=== PATIENT | male | born 1995 | race Caucasian/White ===

== ENCOUNTER 2017-06-23 11:49 | Inpatient (IN) | payer MEDICAID ==
[~2017-06-23] VITALS: Ht 165.1 cm; Wt 60.6 kg
[2017-06-23] MEDS ORDERED: SODIUM CHLORIDE 0.9% 1,000ML IVBOLUS ONE (12:30)
[2017-06-23] MEDS ORDERED: SODIUM CHLORIDE FLUSH 10ML SYR IVF ONE (12:30)
[2017-06-23] MEDS ORDERED: ACETAMINOPHEN 500 MG TABLET PO ONE (12:30)
[2017-06-23] MEDS ORDERED: ACETAMINOPHEN 500 MG TABLET ONE ×2 (12:31→14:18)
[2017-06-23] MEDS ORDERED: IBUPROFEN 200 MG TABLET ONE (12:32)
[2017-06-23] MEDS ORDERED: ACETAMINOPHEN 325 MG TABLET PO ONE (13:00)
[2017-06-23] MEDS ORDERED: IBUPROFEN 200 MG TABLET PO ONE (13:00)
[2017-06-23 13:04] LABS: BASOPHILS # (AUTO) 0.02 x10^3/uL (0-0.1); BASOPHILS % (AUTO) 0 % (0-1); EOSINOPHILS # (AUTO) 0.09 x10^3/uL (0-0.4); EOSINOPHILS % (AUTO) 1 % (1-7); LYMPHOCYTES # (AUTO) 1.63 x10^3/uL (1-3.4); LYMPHOCYTES % (AUTO) 16 % (22-44); MD NO; MEAN CORPUSCULAR HEMOGLOBIN 28.6 pg (27.5-34.5); MEAN CORPUSCULAR HGB CONC 32.6 g/dL (33.2-36.2); MEAN CORPUSCULAR VOLUME 87.8 fL (81-97); MEAN PLATELET VOLUME 12.1 fL (7.4-10.4); MONOCYTES % (AUTO) 5 % (2-9); NEUTROPHILS % (AUTO) 78 % (42-75); PLATELET COUNT 109 x10^3/uL (130-400); RED BLOOD COUNT 4.87 x10^6/uL (4.38-5.82); RED CELL DISTRIBUTION WIDTH 15.5 % (9.4-14.8)
[2017-06-23 13:30] LABS: RAPID INFLUENZA A Negative (Negative); RAPID INFLUENZA B Negative (Negative)
[2017-06-23 13:40] LABS: ALBUMIN 3.2 g/dL (3.4-5.0); ANION GAP 7 mmol/L (5-15); CALCIUM 8.1 mg/dL (8.5-10.1); CHLORIDE 142 mmol/L (98-107); CREATININE 1.53 mg/dL (0.7-1.3)
[2017-06-23] MEDS ORDERED: CEFTRIAXONE PMX 1GM/50ML 50 ML IV ONE (14:00)
[2017-06-23] MEDS ORDERED: POTASSIUM CHLORIDE 40 MEQ in SODIUM CHLORIDE 0.45% 1,000 ML IV SCH (14:00)
[2017-06-23] MEDS ORDERED: CEFTRIAXONE PMX 1GM/50ML 50 ML ONE (14:17)
[2017-06-23 14:28] LABS: ANION GAP 7 mmol/L (5-15); CALCIUM 7.5 mg/dL (8.5-10.1); CHLORIDE 143 mmol/L (98-107); CREATININE 1.31 mg/dL (0.7-1.3)
[2017-06-23] MEDS: NS + 20MEQ KCL 1,000 ML IV SCH (15:58)
[2017-06-23] MEDS ORDERED: ACETAMINOPHEN 325 MG TABLET PO PRN (16:00)
[2017-06-23] MEDS ORDERED: ONDANSETRON 2MG/ML, 2ML IVPush PRN (16:00)
[2017-06-23] MEDS ORDERED: POLYETHYLENE GLYCOL 17 GM PACKET PO PRN (16:00)
[2017-06-23] MEDS ORDERED: HEPARIN 5,000 UNITS/ML, 1ML ONE (17:19)
[2017-06-23] MEDS ORDERED: NS + 20MEQ KCL 1,000 ML IV ONE (17:26)
[2017-06-23] MEDS: AZITHROMYCIN 500 MG in SODIUM CHLORIDE 0.9% 250 ML IV SCH (17:50)
[2017-06-23] MEDS: HEPARIN 5,000 UNITS/ML, 1ML SQ SCH ×2 (17:58→23:31)
[2017-06-23 18:09] LABS: ANION GAP 6 mmol/L (5-15); CALCIUM 7.3 mg/dL (8.5-10.1); CHLORIDE 142 mmol/L (98-107); CREATININE 1.15 mg/dL (0.7-1.3)
[2017-06-23] MEDS: CEFTRIAXONE PMX 1GM/50ML 50 ML IV SCH (19:38)
[2017-06-23 20:45] LABS: CHLORIDE,URINE RANDOM 212 mmol/L; MICROSCOPIC NOT IND; POTASSIUM,URINE RANDOM 48 mmol/L; SODIUM,URINE RANDOM 200 mmol/L
[2017-06-23 20:49] LABS: CULTURE INDICATED? NO
[2017-06-23] MEDS ORDERED: POTASSIUM CHLORIDE 20 MEQ TAB.ER.PRT PO ONE (21:00)
[2017-06-23 21:04] VITALS: BP 98/50
[2017-06-23 22:38] LABS: ANION GAP 9 mmol/L (5-15); CALCIUM 7.2 mg/dL (8.5-10.1); CHLORIDE 142 mmol/L (98-107)
[2017-06-23] MEDS ORDERED: POTASSIUM CHLORIDE 20 MEQ in DEXTROSE 5% 1,000 ML IV SCH (23:00)
[2017-06-24 02:17] LABS: ALANINE AMINOTRANSFERASE 10 U/L (12-78); ALBUMIN 2.5 g/dL (3.4-5.0); ANION GAP 8 mmol/L (5-15); CALCIUM 7.3 mg/dL (8.5-10.1); CHLORIDE 140 mmol/L (98-107); CREATININE 1.07 mg/dL (0.7-1.3)
[2017-06-24 02:20] LABS: ALKALINE PHOSPHATASE 53 U/L (45-117); BILIRUBIN,TOTAL 0.7 mg/dL (0.2-1.0); TOTAL PROTEIN 6.3 g/dL (6.4-8.2)
[2017-06-24 02:23] LABS: MEAN CORPUSCULAR HEMOGLOBIN 28.2 pg (27.5-34.5); MEAN CORPUSCULAR HGB CONC 32.4 g/dL (33.2-36.2); MEAN CORPUSCULAR VOLUME 87.1 fL (81-97); RED BLOOD COUNT 4.12 x10^6/uL (4.38-5.82); RED CELL DISTRIBUTION WIDTH 14.9 % (9.4-14.8)
[2017-06-24] MEDS: POTASSIUM CHLORIDE 20 MEQ in DEXTROSE 5% 1,000 ML IV SCH ×3 (02:30→23:45)
[2017-06-24 02:39] LABS: BASOPHILS # (AUTO) 0.07 x10^3/uL (0-0.1); BASOPHILS % (AUTO) 1 % (0-1); EOSINOPHILS # (AUTO) 0.14 x10^3/uL (0-0.4); EOSINOPHILS % (AUTO) 2 % (1-7); LYMPHOCYTES # (AUTO) 2.03 x10^3/uL (1-3.4); LYMPHOCYTES % (AUTO) 24 % (22-44); MD SCAN; MEAN PLATELET VOLUME 12.1 fL (7.4-10.4); MONOCYTES # (AUTO) 0.46 x10^3/uL (0.2-0.8); MONOCYTES % (AUTO) 5 % (2-9); NEUTROPHILS # (AUTO) 5.79 x10^3/uL (1.8-6.8); NEUTROPHILS % (AUTO) 68 % (42-75); PLATELET COUNT 84 x10^3/uL (130-400)
[2017-06-24] MEDS ORDERED: POTASSIUM CHLORIDE 20 MEQ TAB.ER.PRT PO ONE (03:00)
[2017-06-24] MEDS: NS + 20MEQ KCL 1,000 ML IV SCH (05:18)
[2017-06-24 07:00] LABS: ANION GAP 6 mmol/L (5-15); CALCIUM 7.4 mg/dL (8.5-10.1); CHLORIDE 139 mmol/L (98-107); CREATININE 0.94 mg/dL (0.7-1.3)
[2017-06-24 10:26] LABS: ANION GAP 6 mmol/L (5-15); CALCIUM 7.4 mg/dL (8.5-10.1); CHLORIDE 136 mmol/L (98-107); CREATININE 0.87 mg/dL (0.7-1.3)
[2017-06-24] MEDS: HEPARIN 5,000 UNITS/ML, 1ML SQ SCH ×3 (10:37→23:45)
[2017-06-24] MEDS: SENNA/DOCUSATE TABLET PO SCH (10:37)
[2017-06-24 14:24] LABS: ANION GAP 6 mmol/L (5-15); CALCIUM 7.5 mg/dL (8.5-10.1); CHLORIDE 133 mmol/L (98-107)
[2017-06-24 14:26] LABS: CREATININE 1.03 mg/dL (0.7-1.3)
[2017-06-24] MEDS: AZITHROMYCIN 500 MG in SODIUM CHLORIDE 0.9% 250 ML IV SCH (17:09)
[2017-06-24 18:14] LABS: ANION GAP 7 mmol/L (5-15); CALCIUM 7.5 mg/dL (8.5-10.1); CHLORIDE 131 mmol/L (98-107); CREATININE 1.03 mg/dL (0.7-1.3)
[2017-06-24] MEDS: CEFTRIAXONE PMX 1GM/50ML 50 ML IV SCH (20:06)
[2017-06-24 22:23] LABS: ANION GAP 10 mmol/L (5-15); CALCIUM 7.1 mg/dL (8.5-10.1); CHLORIDE 129 mmol/L (98-107); CREATININE 0.95 mg/dL (0.7-1.3)
[2017-06-25 02:34] LABS: MEAN CORPUSCULAR HEMOGLOBIN 28.6 pg (27.5-34.5); MEAN CORPUSCULAR HGB CONC 33.2 g/dL (33.2-36.2); MEAN CORPUSCULAR VOLUME 86.1 fL (81-97); MEAN PLATELET VOLUME 11.7 fL (7.4-10.4); PLATELET COUNT 83 x10^3/uL (130-400); RED BLOOD COUNT 3.92 x10^6/uL (4.38-5.82); RED CELL DISTRIBUTION WIDTH 14.6 % (9.4-14.8)
[2017-06-25 02:37] LABS: ALANINE AMINOTRANSFERASE 10 U/L (12-78); ALBUMIN 2.4 g/dL (3.4-5.0); CALCIUM 7.2 mg/dL (8.5-10.1); CREATININE 0.94 mg/dL (0.7-1.3)
[2017-06-25 03:03] LABS: BASOPHILS # (AUTO) 0.01 x10^3/uL (0-0.1); BASOPHILS % (AUTO) 0 % (0-1); EOSINOPHILS # (AUTO) 0.15 x10^3/uL (0-0.4); EOSINOPHILS % (AUTO) 3 % (1-7); LYMPHOCYTES # (AUTO) 1.87 x10^3/uL (1-3.4); LYMPHOCYTES % (AUTO) 32 % (22-44); MD SCAN; MONOCYTES # (AUTO) 0.38 x10^3/uL (0.2-0.8); MONOCYTES % (AUTO) 6 % (2-9); NEUTROPHILS # (AUTO) 3.51 x10^3/uL (1.8-6.8); NEUTROPHILS % (AUTO) 59 % (42-75)
[2017-06-25 03:13] LABS: ALKALINE PHOSPHATASE 57 U/L (45-117); ANION GAP 9 mmol/L (5-15); BILIRUBIN,TOTAL 0.3 mg/dL (0.2-1.0); CHLORIDE 128 mmol/L (98-107); TOTAL PROTEIN 6.1 g/dL (6.4-8.2)
[2017-06-25 04:30] VITALS: BP 100/59
[2017-06-25 05:56] LABS: MEAN CORPUSCULAR HEMOGLOBIN 29.3 pg (27.5-34.5); MEAN CORPUSCULAR HGB CONC 34.1 g/dL (33.2-36.2); MEAN CORPUSCULAR VOLUME 85.9 fL (81-97); MEAN PLATELET VOLUME 11.3 fL (7.4-10.4); PLATELET COUNT 79 x10^3/uL (130-400); RED CELL DISTRIBUTION WIDTH 14.3 % (9.4-14.8)
[2017-06-25 06:05] LABS: CHLORIDE 125 mmol/L (98-107)
[2017-06-25 06:06] LABS: ANION GAP 9 mmol/L (5-15); CALCIUM 7.1 mg/dL (8.5-10.1); CREATININE 0.95 mg/dL (0.7-1.3)
[2017-06-25 06:27] LABS: BASOPHILS # (AUTO) 0.02 x10^3/uL (0-0.1); BASOPHILS % (AUTO) 0 % (0-1); EOSINOPHILS # (AUTO) 0.14 x10^3/uL (0-0.4); EOSINOPHILS % (AUTO) 3 % (1-7); LYMPHOCYTES % (AUTO) 30 % (22-44); MD SCAN; MONOCYTES # (AUTO) 0.32 x10^3/uL (0.2-0.8); MONOCYTES % (AUTO) 6 % (2-9); NEUTROPHILS # (AUTO) 3.18 x10^3/uL (1.8-6.8); NEUTROPHILS % (AUTO) 60 % (42-75)
[2017-06-25] MEDS ORDERED: POTASSIUM CHLORIDE 20 MEQ TAB.ER.PRT PO ONE (08:00)
[2017-06-25] MEDS: SENNA/DOCUSATE TABLET PO SCH (09:33)
[2017-06-25] MEDS ORDERED: POTASSIUM CHLORIDE 20 MEQ in DEXTROSE 5% 1,000 ML IV SCH ×2 (10:00→23:00)
[2017-06-25 10:06] VITALS: BP 98/63
[2017-06-25 12:14] LABS: ANION GAP 5 mmol/L (5-15); CALCIUM 7.3 mg/dL (8.5-10.1); CHLORIDE 121 mmol/L (98-107); CREATININE 0.85 mg/dL (0.7-1.3)
[2017-06-25 12:35] VITALS: BP 106/68
[2017-06-25 12:49] LABS: HIT RESULT POSITIVE (NEGATIVE)
[2017-06-25] MEDS: AZITHROMYCIN 500 MG in SODIUM CHLORIDE 0.9% 250 ML IV SCH (16:45)
[2017-06-25 18:58] VITALS: BP 98/64
[2017-06-25] MEDS: CEFTRIAXONE PMX 1GM/50ML 50 ML IV SCH (19:35)
[2017-06-25 20:17] LABS: ANION GAP 7 mmol/L (5-15); CALCIUM 7.5 mg/dL (8.5-10.1); CHLORIDE 118 mmol/L (98-107); CREATININE 0.84 mg/dL (0.7-1.3)
[2017-06-26 02:10] VITALS: BP 93/58
[2017-06-26 05:12] LABS: MEAN CORPUSCULAR HEMOGLOBIN 28.7 pg (27.5-34.5); MEAN CORPUSCULAR HGB CONC 33.2 g/dL (33.2-36.2); MEAN CORPUSCULAR VOLUME 86.5 fL (81-97); MEAN PLATELET VOLUME 11.8 fL (7.4-10.4); PLATELET COUNT 93 x10^3/uL (130-400); RED CELL DISTRIBUTION WIDTH 13.7 % (9.4-14.8)
[2017-06-26 05:18] LABS: ALANINE AMINOTRANSFERASE 16 U/L (12-78); ALBUMIN 2.4 g/dL (3.4-5.0); ANION GAP 7 mmol/L (5-15); CALCIUM 7.6 mg/dL (8.5-10.1); CHLORIDE 117 mmol/L (98-107); CREATININE 0.82 mg/dL (0.7-1.3)
[2017-06-26 05:21] LABS: ALKALINE PHOSPHATASE 53 U/L (45-117); BILIRUBIN,TOTAL 0.5 mg/dL (0.2-1.0)
[2017-06-26 05:53] LABS: BASOPHILS # (AUTO) 0.02 x10^3/uL (0-0.1); BASOPHILS % (AUTO) 0 % (0-1); EOSINOPHILS # (AUTO) 0.12 x10^3/uL (0-0.4); EOSINOPHILS % (AUTO) 3 % (1-7); LYMPHOCYTES % (AUTO) 35 % (22-44); MD SCAN; MONOCYTES # (AUTO) 0.31 x10^3/uL (0.2-0.8); MONOCYTES % (AUTO) 7 % (2-9); NEUTROPHILS % (AUTO) 55 % (42-75)
[2017-06-26 07:22] VITALS: BP 104/62
[2017-06-26] MEDS: SENNA/DOCUSATE TABLET PO SCH (09:00)
[2017-06-26] MEDS ORDERED: POTASSIUM CHLORIDE 20 MEQ in DEXTROSE 5% 1,000 ML IV SCH (10:00)
[2017-06-26 14:00] VITALS: BP 100/65
[2017-06-26] MEDS: AZITHROMYCIN 500 MG in SODIUM CHLORIDE 0.9% 250 ML IV SCH (15:55)
[2017-06-26 18:34] VITALS: BP 99/63
[2017-06-26] MEDS: CEFTRIAXONE PMX 1GM/50ML 50 ML IV SCH (20:18)
[2017-06-27] MEDS: POTASSIUM CHLORIDE 20 MEQ in DEXTROSE 5% 1,000 ML IV SCH ×2 (01:06→21:04)
[2017-06-27 02:38] VITALS: BP 104/68
[2017-06-27 05:23] LABS: ALBUMIN 2.5 g/dL (3.4-5.0); CHLORIDE 111 mmol/L (98-107)
[2017-06-27 05:26] LABS: ANION GAP 6 mmol/L (5-15); CALCIUM 7.9 mg/dL (8.5-10.1); CREATININE 0.92 mg/dL (0.7-1.3)
[2017-06-27 07:07] VITALS: BP 102/62
[2017-06-27] MEDS: SENNA/DOCUSATE TABLET PO SCH (08:46)
[2017-06-27 14:00] VITALS: BP 101/55
[2017-06-27] MEDS: AZITHROMYCIN 500 MG in SODIUM CHLORIDE 0.9% 250 ML IV SCH (17:45)
[2017-06-27 18:28] VITALS: BP 96/63
[2017-06-27] MEDS: CEFTRIAXONE PMX 1GM/50ML 50 ML IV SCH (20:07)
[2017-06-28 02:05] VITALS: BP 101/64
[2017-06-28 05:33] LABS: ANION GAP 7 mmol/L (5-15); CALCIUM 8.5 mg/dL (8.5-10.1); CHLORIDE 114 mmol/L (98-107); CREATININE 0.95 mg/dL (0.7-1.3)
[2017-06-28 05:44] LABS: BASOPHILS # (AUTO) 0.02 x10^3/uL (0-0.1); BASOPHILS % (AUTO) 0 % (0-1); EOSINOPHILS # (AUTO) 0.14 x10^3/uL (0-0.4); EOSINOPHILS % (AUTO) 3 % (1-7); LYMPHOCYTES # (AUTO) 1.29 x10^3/uL (1-3.4); LYMPHOCYTES % (AUTO) 25 % (22-44); MD NO; MEAN CORPUSCULAR HEMOGLOBIN 29.1 pg (27.5-34.5); MEAN CORPUSCULAR VOLUME 85.6 fL (81-97); MEAN PLATELET VOLUME 11.3 fL (7.4-10.4); MONOCYTES # (AUTO) 0.42 x10^3/uL (0.2-0.8); MONOCYTES % (AUTO) 8 % (2-9); NEUTROPHILS # (AUTO) 3.23 x10^3/uL (1.8-6.8); NEUTROPHILS % (AUTO) 63 % (42-75); PLATELET COUNT 123 x10^3/uL (130-400); RED BLOOD COUNT 4.53 x10^6/uL (4.38-5.82); RED CELL DISTRIBUTION WIDTH 13.9 % (9.4-14.8)
[2017-06-28 07:24] VITALS: BP 100/58
[2017-06-28] MEDS: SENNA/DOCUSATE TABLET PO SCH (08:22)
[2017-06-28] MEDS: DEXTROSE 5% 1,000 ML IV SCH ×3 (08:22→22:48)
[2017-06-28 13:20] VITALS: BP 112/69
[2017-06-28] MEDS: AZITHROMYCIN 500 MG in SODIUM CHLORIDE 0.9% 250 ML IV SCH (16:10)
[2017-06-28 19:22] VITALS: BP 116/73
[2017-06-28] MEDS: CEFTRIAXONE PMX 1GM/50ML 50 ML IV SCH (20:32)
[2017-06-29 02:26] VITALS: BP 101/62
[2017-06-29] MEDS: DEXTROSE 5% 1,000 ML IV SCH ×3 (05:31→20:15)
[2017-06-29 06:02] LABS: BASOPHILS # (AUTO) 0.03 x10^3/uL (0-0.1); BASOPHILS % (AUTO) 1 % (0-1); EOSINOPHILS # (AUTO) 0.15 x10^3/uL (0-0.4); EOSINOPHILS % (AUTO) 3 % (1-7); LYMPHOCYTES % (AUTO) 31 % (22-44); MD NO; MEAN CORPUSCULAR HEMOGLOBIN 28.9 pg (27.5-34.5); MEAN CORPUSCULAR HGB CONC 33.7 g/dL (33.2-36.2); MEAN CORPUSCULAR VOLUME 85.9 fL (81-97); MONOCYTES # (AUTO) 0.47 x10^3/uL (0.2-0.8); MONOCYTES % (AUTO) 9 % (2-9); NEUTROPHILS # (AUTO) 2.92 x10^3/uL (1.8-6.8); NEUTROPHILS % (AUTO) 57 % (42-75); PLATELET COUNT 133 x10^3/uL (130-400); RED BLOOD COUNT 4.55 x10^6/uL (4.38-5.82); RED CELL DISTRIBUTION WIDTH 13.5 % (9.4-14.8)
[2017-06-29 06:10] LABS: CHLORIDE 111 mmol/L (98-107)
[2017-06-29 06:12] LABS: ANION GAP 8 mmol/L (5-15); CALCIUM 8.4 mg/dL (8.5-10.1); CREATININE 0.93 mg/dL (0.7-1.3)
[2017-06-29 08:30] VITALS: BP 101/58
[2017-06-29] MEDS: SENNA/DOCUSATE TABLET PO SCH (09:00)
[2017-06-29 14:30] VITALS: BP 108/58
[2017-06-29] MEDS: AZITHROMYCIN 500 MG in SODIUM CHLORIDE 0.9% 250 ML IV SCH (17:15)
[2017-06-29] MEDS: CEFTRIAXONE PMX 1GM/50ML 50 ML IV SCH (20:15)
[2017-06-29 20:22] VITALS: BP 122/66
[2017-06-30] MEDS: DEXTROSE 5% 1,000 ML IV SCH (03:50)
[2017-06-30 04:00] VITALS: BP 120/60
[2017-06-30 05:27] LABS: ANION GAP 7 mmol/L (5-15); CALCIUM 8.7 mg/dL (8.5-10.1); CHLORIDE 109 mmol/L (98-107); CREATININE 0.84 mg/dL (0.7-1.3)
[2017-06-30 07:37] VITALS: BP 105/61
[2017-06-30] MEDS: SENNA/DOCUSATE TABLET PO SCH (09:00)
[2017-06-30 12:00] VITALS: BP 110/75
[2017-06-30] MEDS: CEFTRIAXONE PMX 1GM/50ML 50 ML IV SCH ×2 (17:04→22:36)
[2017-06-30] MEDS: AZITHROMYCIN 500 MG in SODIUM CHLORIDE 0.9% 250 ML IV SCH (17:10)
[2017-06-30 20:11] VITALS: BP 105/56
[2017-07-01 04:42] VITALS: BP 108/60
[2017-07-01 04:55] LABS: BASOPHILS # (AUTO) 0.02 x10^3/uL (0-0.1); BASOPHILS % (AUTO) 0 % (0-1); EOSINOPHILS # (AUTO) 0.16 x10^3/uL (0-0.4); EOSINOPHILS % (AUTO) 3 % (1-7); LYMPHOCYTES # (AUTO) 1.68 x10^3/uL (1-3.4); LYMPHOCYTES % (AUTO) 26 % (22-44); MD NO; MEAN CORPUSCULAR HEMOGLOBIN 28.9 pg (27.5-34.5); MEAN CORPUSCULAR HGB CONC 33.7 g/dL (33.2-36.2); MEAN CORPUSCULAR VOLUME 85.8 fL (81-97); MEAN PLATELET VOLUME 10.3 fL (7.4-10.4); MONOCYTES % (AUTO) 9 % (2-9); NEUTROPHILS # (AUTO) 4.11 x10^3/uL (1.8-6.8); NEUTROPHILS % (AUTO) 63 % (42-75); PLATELET COUNT 183 x10^3/uL (130-400); RED CELL DISTRIBUTION WIDTH 14.3 % (9.4-14.8)
[2017-07-01 05:06] LABS: ANION GAP 5 mmol/L (5-15); CALCIUM 8.3 mg/dL (8.5-10.1); CHLORIDE 111 mmol/L (98-107)
[2017-07-01 07:16] VITALS: BP 113/73
[2017-07-01] MEDS: SENNA/DOCUSATE TABLET PO SCH (09:00)
[2017-07-01 12:59] VITALS: BP 110/65
[2017-07-01] MEDS: AZITHROMYCIN 500 MG in SODIUM CHLORIDE 0.9% 250 ML IV SCH (18:27)
[2017-07-01 19:54] VITALS: BP 110/63
[2017-07-01] MEDS: CEFTRIAXONE PMX 1GM/50ML 50 ML IV SCH (21:52)
[2017-07-02 02:03] VITALS: BP 104/52
[2017-07-02 07:22] VITALS: BP 103/60
[2017-07-02] MEDS: SENNA/DOCUSATE TABLET PO SCH (08:42)
[2017-07-02 09:11] LABS: ANION GAP 5 mmol/L (5-15); CALCIUM 8.4 mg/dL (8.5-10.1); CHLORIDE 116 mmol/L (98-107); CREATININE 0.82 mg/dL (0.7-1.3)
[2017-07-02] MEDS: DEXTROSE 5% 1,000 ML IV SCH (13:15)
[2017-07-02 13:35] VITALS: BP 116/68
[2017-07-02] MEDS: AZITHROMYCIN 500 MG in SODIUM CHLORIDE 0.9% 250 ML IV SCH (17:42)
[2017-07-02 19:11] VITALS: BP 116/76
[2017-07-02] MEDS: CEFTRIAXONE PMX 1GM/50ML 50 ML IV SCH (21:48)
[2017-07-03] MEDS: DEXTROSE 5% 1,000 ML IV SCH ×2 (01:19→10:33)
[2017-07-03 01:48] VITALS: BP 121/67
[2017-07-03 07:14] VITALS: BP 100/60
[2017-07-03 08:00] LABS: ANION GAP 3 mmol/L (5-15); CHLORIDE 109 mmol/L (98-107); CREATININE 0.86 mg/dL (0.7-1.3)
[2017-07-03] MEDS: SENNA/DOCUSATE TABLET PO SCH (09:00)
[2017-07-03 13:24] VITALS: BP 117/71
[2017-07-03 15:00] VITALS: BP 114/68
[2017-07-03] MEDS ORDERED: FLU VACC QS2017-18 (36MOS+) UP/PF 0.5 ML IM-VACC ONE (15:30)
== END 2017-07-03 16:00 | disposition home or self-care (01) | DRG 871 ==
LOC: ED 14:40 → EDIP 14:51 → ICU 18:53 → 4WST 06-25 10:04 → 4NOR 06-30 13:25
PROVIDERS: ADMIT Internal Medicine; ATTEND Hospitalist
DX: A41.9 Sepsis, unspecified organism (principal); E43 Unspecified severe protein-calorie malnutrition; N17.0 Acute kidney failure with tubular necrosis; G93.40 Encephalopathy, unspecified; D69.6 Thrombocytopenia, unspecified; J15.9 Unspecified bacterial pneumonia; E87.0 Hyperosmolality and hypernatremia; E87.6 Hypokalemia; J06.9 Acute upper respiratory infection, unspecified; Z82.49 Family history of ischemic heart disease and other diseases of the circulatory system; Z68.22 Body mass index [BMI] 22.0-22.9, adult
CPT/HCPCS: 36415; 71046; 80048; 80053; 81003; 82040; 82436; 82533; 83605; 83735; 83930; 83935; 84100; 84133; 84145; 84300; 84443; 85025; 86022; 87040; 87081; 87400; 90686; 93005; 96361; 96365; 96366; 96368; J0456; J0696; J1644; J2405; J3480; J7070; J7030; J7050

== ENCOUNTER 2020-10-01 14:28 | Emergency (ER) | payer MEDICAID ==
[~2020-10-01] VITALS: Ht 162.6 cm; Wt 62.0 kg
[2020-10-01] MEDS ORDERED: HYDROcodone/APAP 5/325 TABLET PO ONE (15:00)
[2020-10-01] MEDS ORDERED: HYDROcodone/APAP 5/325 TABLET ONE (15:12)
--- NOTE | 2020-10-01 15:24 | NUR ---
PT MEDICATED PER ERP ORDER. PT AMBULATED TO PHONE TO CALL MOM.
--- NOTE | 2020-10-01 15:36 | NUR ---
PT TO CT.
--- NOTE | 2020-10-01 16:10 | NUR ---
PT WITH LESS PAIN TO JAW FOLLOWING NORCO. MOTHER AT BS. CT RESULTS BACK, PT FOR RECHECK.
[2020-10-01 17:02] VITALS: BP 122/61
== END 2020-10-01 17:04 | disposition home or self-care (01) ==
LOC: ED 16:30
DX: S00.83XA Contusion of other part of head, initial encounter (principal); E23.2 Diabetes insipidus; F17.210 Nicotine dependence, cigarettes, uncomplicated; Y04.8XXA Assault by other bodily force, initial encounter; Y93.89 Activity, other specified; Y92.89 Other specified places as the place of occurrence of the external cause; Y99.8 Other external cause status
CPT/HCPCS: 70486; 99284

== ENCOUNTER 2021-01-13 18:12 | Emergency (ER) | payer MEDICAID ==
[~2021-01-13] VITALS: Ht 162.6 cm; Wt 58.1 kg
--- NOTE | 2021-01-13 18:55 | NUR ---
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 Awaiting PA assessment.
[2021-01-13] MEDS ORDERED: LIDOCAINE-MPF 1%, 5ML ONE (19:17)
--- NOTE | 2021-01-13 19:25 | NUR ---
Lido and irrigation placed at bedside. Stapler also at bedside and suture tray removed. Pt requires TDaP admin.
[2021-01-13] MEDS ORDERED: LIDOCAINE 1%, 10ML INFIL ONE (19:30)
[2021-01-13] MEDS ORDERED: DIPH,PERTUSS(ACELL),TET VAC/PF 0.5 ML IM-VACC ONE ×2 (19:30→19:40)
--- NOTE | 2021-01-13 19:53 | NUR ---
TDaP given with aseptic technique and tolerated well. Skip to R side of head noted in good condition.
[2021-01-13 20:17] VITALS: BP 110/70
== END 2021-01-13 20:19 | disposition home or self-care (01) ==
LOC: ED 18:42
DX: S01.01XA Laceration without foreign body of scalp, initial encounter (principal); S09.90XA Unspecified injury of head, initial encounter; X58.XXXA Exposure to other specified factors, initial encounter; Y93.89 Activity, other specified; Y92.410 Unspecified street and highway as the place of occurrence of the external cause; Y99.0 Civilian activity done for income or pay
CPT/HCPCS: 12002; 90471; 90715; 99283